=== PATIENT | female | born 1990 | race Caucasian/White ===

== ENCOUNTER → 2021-12-15 | Outpatient (CLI) | payer OTHER ==
[2021-12-15 11:23] VITALS: BP 120/77; PULSE 95; RESP 18; TEMP 97.5
--- NOTE | 2021-12-15 11:50 | P.GSHP ---
History of Present Illness H&P Date: 12/15/21 Chief Complaint: Lump left breast Deonte is a 31 year old white female seen in consultation for Risa Mathias N.P. regarding a lump in her left breast. She noticed the lump after she delivered a baby in December of 2020. This did not go away and so she brought this up last month and is now here for further evaluation. He had a left breast diagnostic mammogram on 2821. This revealed a fullness a solid mass versus a nylon of extremely dense breast parenchyma was noted in the 12:00 area. The area of interest was 2.6 x 2 cm in size. There was no ultrasound correlate. An ultrasound of this area was done on 130 122. This did not reveal any solid masses no architectural distortion or acoustical shadowing to account for the palpable change. She has not had any recent right breast mammogram. She has had a right breast biopsy in the remote past which was benign. The area of nodularities in the 12 o'clock position of the left breast. It has not changed in size. It is intermittently painful. She has not had any recent infection or trauma to the breast. She is from December 2020 and she breast-fed for short time. She therefore felt that the changes in her breasts may be related to that fact and only recently brought them up to her primary care physician. Note from Dr. Mathias reviewed 11-22-21 Caffiene: 1 cup/day nicotine: used to smoke 1 PPD/ now down to 3 cigarettes/day chocolate: monthly Hormone History: menarche: 12 , breast fed: yes, first born at 27 periods regular BCP: tubaligation BCP: had reaction to them when tried so did not take them Family History: paternal aunt: breast cancer maternal grandmother: stomach cancer patient: pre-cervical cancer Surgical History: mole removed LEEP procedure 2 C-sections C4-C5 neck fusion tubaligation Medical History: toes purple being evaluated by vascular surgery chroans herpes ADHD depression/anxiety/ bipolar arthritis Social History: Nicotine: 3 cigarettes per day Alcohol: Occasional Drugs: Medical marijuana daily - Constitutional Constitutional: Denies chills, Denies fever - EENT Eyes: denies blurred vision, denies pain Ears: deny: decreased hearing, tinnitus Ears, nose, mouth and throat: Denies headache, Denies sore throat - Breasts Breasts: bilateral: as per HPI - Cardiovascular Cardiovascular: Denies chest pain, Denies shortness of breath - Respiratory Respiratory: Denies cough, Denies 7 - Gastrointestinal Gastrointestinal: Denies abdominal pain, Denies diarrhea, Denies nausea, Denies vomiting - Genitourinary (Female) Genitourinary: Denies dysuria, Denies hematuria - Menstruation Menstruation: Reports period normal - Musculoskeletal Musculoskeletal: Reports as per HPI - Integumentary Integumentary: Denies pruritus, Denies rash - Neurological Comment: fingertips numb and tingling related to C spine - Psychiatric Psychiatric: Reports as per HPI, Reports anxiety, Reports depression - Endocrine Endocrine: Denies fatigue, Denies weight change - Hematologic/Lymphatic Comment: none - Allergic/Immunologic Allergic/Immunologic: Reports seasonal allergies Past Medical History History of Any Multi-Drug Resistant Organisms: MRSA Date of last positivie culture/infection: 2016 MDRO Source:: UNKNOWN Past Surgical History: Section, Tubal Ligation Additional Past Surgical History / Comment(s): ACDF -NECK PROCEDURE. RIGHT BREAST BIOPSY Past Psychological History: ADD/ADHD, Anxiety, Bipolar, Depression Smoking Status: Current every day smoker Medications and Allergies Home Medications Medication Instructions Recorded Confirmed Type Albuterol Inhaler [Ventolin Hfa 60 puff PO DAILY 12/15/21 12/15/21 History Inhaler] Dextroamphetamine/Amphetamine 25 mg PO DAILY 12/15/21 12/15/21 History [Adderall Xr] Dextroamphetamine/Amphetamine 10 mg PO DAILY 12/15/21 12/15/21 History [Adderall] Allergies Allergy/AdvReac Type Severity Reaction Status Date / Time Penicillins Allergy Unknown Unverified 12/15/21 11:13 Childhood Sulfa (Sulfonamide Allergy Unknown Unverified 12/15/21 11:13 Antibiotics) Childhood Surgical - Exam Vital Signs Temp Pulse Resp BP Pulse Ox 97.5 F L 95 18 120/77 97 12/15/21 11:16 12/15/21 11:16 12/15/21 11:16 12/15/21 11:16 12/15/21 11:16 BMI 22.2 - General no distress - Eyes normal ocular movement - Neck trachea midline - Respiratory normal respiratory effort, clear to auscultation - Cardiovascular Rhythm: regular Heart Sounds: normal: S1, S2 - Abdomen Abdomen: soft - Integumentary normal turgor/ tattoo on back - Neurologic no disoriented, no combative - Musculoskeletal normal gait, normal posture - Psychiatric oriented to time, oriented to person, oriented to place, speech is normal, memory intact Breast Exam: BRA: 36C inspection: Bilateral grade 1/2 ptosis Palpation: Right breast: Multi-positional exam fibrocystic changes, area of nodularity at approximately the 7 o'clock position which is approximately 2 cm in length no other dominant masses or nodules of concern Right axilla: No adenopathy of concern Left breast: Increased fullness 12 o'clock position approximately 2 cm in size fibrocystic breast changes Left axilla: No adenopathy of concern Results Mammogram and ultrasound results reviewed of the left breast no recent right breast radiographs available Assessment and Plan Assessment: Impression: Right breast palpable mass 7:00 which was biopsied in the remote past and noted to be benign the patient has not had any right breast imaging done recently Left breast palpable mass 12:00 corresponding with that which was seen on mammogram Fibrocystic breast changes toes purple being evaluated by vascular surgery chroans herpes ADHD depression/anxiety/ bipolar arthritis Plan: Right breast ultrasound Review of left breast mammogram and ultrasound Left breast stereotactic core biopsy Cc: Risa Maria Risks and benefits of the procedure discussed with the patient. She understands and wishes to proceed risk of stereo biopsy include but are not limited to bleeding, infection, reaction to the anesthetic. Additionally at the lesion cannot be seen on the stereo unit procedure may be canceled. The films were reviewed with Dr. Orona and there is a vague density in the 12 o'clock position corresponding to the palpable abnormality in the right breast.
== END ==
LOC: WWCWWP 10:52
PROVIDERS: ATTEND Surgery
DX: N63.10 Unspecified lump in the right breast, unspecified quadrant (principal); N60.11 Diffuse cystic mastopathy of right breast; B00.9 Herpesviral infection, unspecified; F90.9 Attention-deficit hyperactivity disorder, unspecified type; F31.9 Bipolar disorder, unspecified; F41.9 Anxiety disorder, unspecified; M19.90 Unspecified osteoarthritis, unspecified site; F17.210 Nicotine dependence, cigarettes, uncomplicated; Z79.899 Other long term (current) drug therapy; Z88.0 Allergy status to penicillin; Z88.2 Allergy status to sulfonamides

== ENCOUNTER → 2021-12-21 | Day surgery (SDC) | payer OTHER ==
[2021-12-21 07:27] VITALS: BP 109/72; RESP 16; TEMP 97.7
--- NOTE | 2021-12-21 09:16 | MM ---
EXAMINATION TYPE: MG discontinued stereo core LT DATE OF EXAM: 12/21/2021 COMPARISON: NONE CLINICAL HISTORY: Palpable abnormality TECHNIQUE: Stereotactic guided core biopsy of left breast. FINDINGS: The procedure of stereotactic guided core biopsy was explained to the patient. Benefits, a lternatives, and risks were discussed. An informed consent was then obtained. The area of concern could not be localized with certainty. Findings were discussed with the patient w ho wished to defer the procedure. Surgical consultation is suggested with surgical biopsy recommended . IMPRESSION: 1. Unsuccessful stereotactic core biopsy due to inability to definitively localize the lesion stereot actically. Surgical consultation recommended.
== END | disposition home or self-care (01) ==
LOC: RADMAMWWP 07:04
PROVIDERS: ATTEND Surgery
DX: R92.8 Other abnormal and inconclusive findings on diagnostic imaging of breast (principal); Z53.8 Procedure and treatment not carried out for other reasons

== ENCOUNTER → 2022-01-04 | Outpatient (CLI) | payer OTHER ==
[2022-01-04 14:19] VITALS: BP 111/73; PULSE 98; RESP 16; TEMP 97.5
--- NOTE | 2022-01-04 14:50 | P.PN ---
Subjective Progress Note Date: 01/04/22 Deonte is a 31 -year-old white female who presented with a lump in the right breast as well as a lump in the left breast. She is approximately 1 year . She had a recent ultrasound of the right breast which revealed a 1.9 cm solid mass at 6:00. This corresponds to the palpable abnormality. In the remote past patient states she had a biopsy near this area which was benign. I suspect this represents a fibroadenoma however the patient feels it is enlarging in size and is painful for her. She would like this to be removed. In the left breast at the 12 o'clock position there is an island of dense breast tissue for which surgery to core biopsy was recommended as nothing was seen on ultrasound to correspond to this area. Attempt to surgically core biopsy was unsuccessful as there was no discrete mass to biopsy. There is however an area of fullness on palpation at the 12:00 area and core biopsy of palpable lesion is recommended. Impression: Palpable mass which is solid 6:00 area right breast core biopsy recommended Palpable mass left breast 12:00 core biopsy recommended Plan: Core biopsy bilateral breast Follow up after core biopsy; ultrasound core biopsy right breast, left breast core biopsy palpable mass Most likely resection of solitary lesion right breast in the operating room CC: Risa Mathias Objective - Vital Signs Vital signs: Vital Signs Temp 97.5 F L 01/04/22 14:16 Pulse 98 01/04/22 14:16 Resp 16 01/04/22 14:16 BP 111/73 01/04/22 14:16 Pulse Ox 98 01/04/22 14:16 Intake & Output 01/03/22 01/04/22 01/04/22 18:59 06:59 18:59 Weight 49.895 kg
== END ==
LOC: WWCWWP 13:48
PROVIDERS: ATTEND Surgery
DX: N63.20 Unspecified lump in the left breast, unspecified quadrant (principal); N63.10 Unspecified lump in the right breast, unspecified quadrant; Z88.0 Allergy status to penicillin; Z88.2 Allergy status to sulfonamides; Z91.040 Latex allergy status

== ENCOUNTER → 2022-02-08 | Outpatient (CLI) | payer OTHER ==
[2022-02-08 09:15] VITALS: BP 116/79; PULSE 106; RESP 17; TEMP 97.9
--- NOTE | 2022-02-08 09:38 | P.PCN ---
Date of Procedure: 02/08/22 Preoperative Diagnosis: Palpable fullness 12 o'clock position left breast Postoperative Diagnosis: Same Procedure(s) Performed: Core biopsy left breast Anesthesia: local Surgeon: Genia Roland Pathology: other (Breast tissue) Condition: stable Disposition: same day Indications for Procedure: Palpable fullness left breast not seen on ultrasound Operative Findings: Dense breast tissue Description of Procedure: Following informed consent the area of concern in the left breast was prepped using Betadine. 1% lidocaine was used to anesthetize the area of concern. A small gigi was made in the skin. An 18-gauge Bard core biopsy needle was inse rted into the area of concern. 3 core biopsy specimens were obtained. The skin incision was closed using a nylon suture. The patient tolerated the procedure in stable condition. The specimen was sent to pathology. The patient will follow up next week for results.
== END ==
LOC: WWCWWP 08:55
PROVIDERS: ATTEND Surgery
DX: R92.2 Inconclusive mammogram (principal); Z88.0 Allergy status to penicillin; Z88.2 Allergy status to sulfonamides; Z91.040 Latex allergy status
CPT/HCPCS: 88305

== ENCOUNTER → 2022-02-08 | Day surgery (SDC) | payer OTHER ==
--- NOTE | 2022-02-08 11:58 | USB ---
EXAMINATION TYPE: US biopsy breast VAD RT, MG diagnostic mammo RT wo CAD DATE OF EXAM: 02/08/2022 CLINICAL HISTORY: R92.8 ABN MAMMO. Abnormal ultrasound. Palpable abnormality right breast. TECHNIQUE: Ultrasound guided core biopsy of right breast with clip placement and follow-up diagnostic 2 view mammogram. COMPARISON: Outside ultrasound December 26, 2021 FINDINGS: The procedure of ultrasound guided core biopsy was explained to the patient. Benefits, alternatives, and risks were discussed. An informed consent was then obtained. The patient was placed in supine positioning for imaging and for the procedure. Preprocedure scanning redemonstrates oval circumscribed hypoechoic mass 6:00 position measuring nearly 2.0 cm long axis. The overlying skin was prepped and draped in usual sterile fashion. Lidocaine is used as anesthetic into the skin and subcutaneous tissue up to area of concern in the right breast. A gigi was made with surgical scalpel. Under ultrasound guidance, a vacuum assisted biopsy gun device was used to obtain 2 core samples. Following this, a biopsy clip was left in the periphery of the lesion. Lesion was mobile and difficult to penetrate deeper. The patient tolerated the procedure well without any immediate complication. The patient was kept in the radiology department for short stay after the procedure and then discharged home in stable condition. Postprocedure mammogram shows successful deployment of wing clip along posterior aspect of the lesion on background dense tissue. There is a second clip along the anterior aspect of the lesion noted. IMPRESSION: Successful, uncomplicated ultrasound guided core biopsy of area of concern in the right breast, full pathology results to follow. Low index of suspicion noted at time of procedure. 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 Pathology Results: Benign RIGHT BREAST, 6:00, NEEDLE CORE BIOPSY: Fibroadenoma. Recommendation Follow up ultrasound of the right breast in 6 months. MUNIRA
== END ==
LOC: RADUSWWP 08:48
PROVIDERS: ATTEND Surgery
DX: D24.1 Benign neoplasm of right breast (principal); R92.8 Other abnormal and inconclusive findings on diagnostic imaging of breast
CPT/HCPCS: 88305; 77065; 19083; A4648

== ENCOUNTER → 2022-02-22 | Outpatient (CLI) | payer OTHER ==
--- NOTE | 2022-02-22 15:36 | P.PN ---
Progress Note - Text Progress Note Date: 02/22/22 Deonte 31-year-old white female who is status post bilateral breast core biopsies. On [id number] she underwent a left breast mass probable poor biopsy and pathology revealed scar/fibrosis and fibrocystic changes. Right breast ultrasound-guided core biopsy was performed on the same date which revealed a fibroadenoma. She is planning on having the one on the right removed as this is symptomatic. She tolerated the biopsys without difficulty. Physical Exam: Lungs: Clear Heart: Regular rate and rhythm Bilateral biopsy sites clean and dry no evidence of infection Plan: The patient would like to have the fibroadenoma in the right breast removed. She wishes to schedule this in August. If this becomes larger or more symptomatic she will be seen sooner. Follow-up appointment closer to the time of surgery CC: Risa Mathias
== END ==
LOC: WWCWWP 15:15
PROVIDERS: ATTEND Surgery
DX: D24.1 Benign neoplasm of right breast (principal); Z98.890 Other specified postprocedural states